=== PATIENT | female | born 1995 | race Caucasian/White ===

== ENCOUNTER 2021-10-13 16:10 | Outpatient (CLI) | payer OTHER, SELFPAY ==
--- NOTE | ~2021-10-13 | XR_ITS ---
XR knee LT 3V DATE: 10/13/2021 16:36 INDICATION: Bilateral medial knee pain for one year after fall TECHNIQUE: [place], AP and lateral views COMPARISON: None FINDINGS: No fracture or dislocation, periosteal reaction or bone destruction, joint space narrowing, radiopaque intra-articular loose body or chondrocalcinosis is evident. IMPRESSION: No significant bony abnormality Reviewed, dictated and finalized at location B. DER MACHINE SETTER
--- NOTE | ~2021-10-13 | XR_ITS ---
XR knee RT 3V DATE: 10/13/2021 16:36 INDICATION: Bilateral medial knee pain after a fall one year ago TECHNIQUE: [place], AP and lateral views COMPARISON: None FINDINGS: No fracture, dislocation, periosteal reaction or bone destruction, joint space narrowing, r adiopaque intra-articular loose body or chondrocalcinosis is evident. IMPRESSION: No significant abnormality Reviewed, dictated and finalized at location B. Y PLAN DEMONSTRATOR IMPRESSION: No significant abnormality
== END 2021-10-13 16:11 | disposition home or self-care (01) ==
LOC: CHSIMG 16:13
PROVIDERS: PCP Family Medicine; Visit Provider Family Medicine
DX: M25.562 Pain in left knee (principal); M25.561 Pain in right knee
CPT/HCPCS: 73562

== ENCOUNTER 2025-04-23 18:14 | Outpatient (CLI) | payer OTHER, SELFPAY ==
[2025-04-23 18:46] LABS: Hematocrit 40.4 % (35.0-49.0); Hemoglobin 13.5 g/dL (12.0-15.0); Immature Granulocyte Percent A 0.3 % (0.0-0.0); Lymphocytes Absolute Auto 2.80 K/mm3 (1.10-4.50); Mean Corpuscular HGB Conc 33.4 g/dL (32-36); Mean Corpuscular Hemoglobin 30.2 pg (27.0-31.0); Mean Corpuscular Volume 90.4 fL (78.0-102.0); Nucleated Red Blood Cells Absolute Auto 0.00 K/mm3 (0.00-0.00); Nucleated Red Blood Cells Perc 0.0 % (0-0.0); Platelet Count Result 247 K/mm3 (150-420); Red Blood Count 4.47 M/mm3 (4.20-5.40); White Blood Count 7.0 K/mm3 (4.8-10.8)
[2025-04-23 18:57] LABS: Alanine Aminotransferase 15 U/L (6-35); Albumin Level 4.9 g/dL (3.5-5.1); Alkaline Phosphatase 77 U/L (38-126); Anion Gap 11 mmol/L (4-12); Aspartate Amino Transferase 21 U/L (14-36); Bilirubin,Total 0.5 mg/dL (0.2-1.3); Blood Urea Nitrogen 7 mg/dL (7-17); Calcium 9.3 mg/dL (8.4-10.2); Carbon Dioxide 29 mmol/L (22-30); Chloride 104 mmol/L (98-107); Estimated Glomerular Filt Rate > 60; Glucose 91 mg/dL (65-110); Osmolality Calculated 296 mOsm/kg (285-295); Potassium 3.7 mmol/L (3.4-5.0); Sodium 144 mmol/L (137-145); Total Protein 7.5 g/dL (6.3-8.2)
== END 2025-04-23 18:15 | disposition home or self-care (01) ==
LOC: CHSLAB 18:19
PROVIDERS: PCP Family Medicine; Visit Provider Family Medicine
DX: R11.2 Nausea with vomiting, unspecified (principal)
CPT/HCPCS: 36415; 80053; 85025